=== PATIENT | female | born 1935 | race Caucasian/White ===

== ENCOUNTER 2016-09-17 19:21 | Emergency (ER) | payer MEDICARE, OTHER ==
[2016-09-17] MEDS ORDERED: ONDANSETRON INJ 4 MG/2 ML VIAL IV ONE (19:31)
[2016-09-17] MEDS ORDERED: ASPIRIN TABLET 325 MG TAB PO ONE (19:31)
[2016-09-17] MEDS ORDERED: SODIUM CHLORIDE 0.9% (FLUSH) 10 ML SYG IV PRN (19:31)
[2016-09-17] MEDS ORDERED: ONDANSETRON ODT 8 MG TAB SL PRN (19:34)
[2016-09-17 20:03] VITALS: TEMP 98.2
--- NOTE | 2016-09-17 20:16 | CT ---
EXAM DESCRIPTION: CT HEAD WITHOUT IV CONTRAST CLINICAL HISTORY: 81 y/o Fmemory loss COMPARISON: None. TECHNIQUE: Contiguous axial images were obtained through the brain without IV contrast. FINDINGS: The ventricles and sulci are prominent consistent with atrophic change. Microvascular ischemic changes. No acute hemorrhage. No mass lesions. 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 Marked atherosclerotic calcifications in the distal vertebral and carotid arteries. No fluid or significant mucosal thickening in the visualized paranasal sinuses. No depressed calvarial fractures. IMPRESSION: Atrophy and microvascular ischemic changes. 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 No acute intracranial abnormality is identified. If there is concern for acute ischemic change, MRI with diffusion-weighted images could be obtained to better evaluate. Electronically signed by: Abimael Cormier MD 09/17/2016 20:15
[2016-09-17] MEDS: NITROGLYCERIN 0.4 MG 25 EA TAB SL ONE ×2 (20:32→20:39)
[2016-09-17] MEDS ORDERED: NITROGLYCERIN 0.4 MG 25 EA TAB SL ONE (20:42)
--- NOTE | 2016-09-17 20:46 | RAD ---
EXAM DESCRIPTION: XR CHEST 1 VIEW CLINICAL HISTORY: 81 y/o Fcardiac problems. COMPARISON: 07/21/2014. FINDINGS: Mild cardiomegaly. Changes from previous sternotomy. Atherosclerotic calcifications in the thoracic aorta. No consolidating infiltrates or pleural effusions. No pneumothorax. Degenerative changes in the spine. Chronic changes in the left shoulder. IMPRESSION: No acute abnormality is identified. Electronically signed by: Abimael Cormier MD 09/17/2016 20:44
[2016-09-17] MEDS ORDERED: NITROGLYCERIN/D5W IV 250 ML IVS SCH (21:30)
[2016-09-17] MEDS ORDERED: METOPROLOL TARTRATE INJ 5 MG/5 ML VIAL IV ONE (22:11)
--- NOTE | 2016-09-17 22:41 | ED.PDOC ---
History of Present Illness - General Chief Complaint: Neuro Symptoms/Deficits Stated Complaint: alter mental status Time Seen by Provider: 09/17/16 19:43 Source: patient Exam Limitations: clinical condition - History of Present Illness Initial Comments: the patient is an 81-year-old female presenting to the emergency room due to a period of altered mental status. The patient was present with her family at her house when she went to check her blood sugar. When she didn't come back to the dining room table her son went and found her and she was wondering around her room confused. She had not checked her blood sugar which they did and it was 150. She did not remember what day it was or what month it was what holiday it was. She was moving all extremities as well as normal. She was speaking as well as normal but she was obviously confused. She was not having any chest pain or shortness of breath. Apparently on the ride up here she complained of some headache. By her arrival here she was not having a headache. she was mildly confused still upon her arrival here. She did get the year correct but could not recall the month. She knew she was at the [facility] emergency room. She did not know why her family was here. She cannot remember if she had any supper or what she had for lunch. f note, during the previous week she has had symptoms of a gastroenteritis with some mild nausea and a couple of episodes of vomiting. Oral intake has not quite been normal. She has had several episodes of her anginal chest pain over the last week which is not unusual. She apparently had a normal catheterization with Dr. begum in June. she was apparently told to continue taking her nitroglycerin as needed for the chest pain. There appears to be some noncompliance with her medications to control her hypertension. She was significantly hypertensive upon arrival here and has remained so even after resting. Systolic blood pressures have been around 200. She has no headache. She has no chest pain. She has no shortness of breath. There was no syncope. There was no fall. She does have a history of getting confused with any infection on board. She has not had a fever. She has not had a productive cough. She has not had any urinary symptoms. Timing/Duration: 1/2 hour Severity: moderate Improving Factors: nothing Worsening Factors: nothing Associated Symptoms: malaise Allergies/Adverse Reactions: Allergies NO KNOWN ALLERGY Allergy (Verified 07/11/14 15:11) Home Medications: Ambulatory Orders Alendronate Sodium [Fosamax] 70 mg PO TH 01/27/13 Atorvastatin Calcium [Lipitor] 10 mg PO BEDTIME 01/27/13 Calcium Ascorbate [Vitamin C] 500 mg PO BID 01/27/13 Cinnamon 500 mg PO BID 01/27/13 Cyanocobalamin [Vitamin B-12] 1,000 mcg PO BID 01/27/13 Fish Oil-Cholecalciferol [[place]-3 Fish Oil/Vitamin 6804-2368 mg-Unit] 1,000 mg PO BID 01/27/13 Furosemide [Lasix] 20 mg PO AM 01/27/13 Gabapentin 1,200 mg PO BEDTIME 01/27/13 Gabapentin [Neurontin] 600 mg PO DAILY 01/27/13 Imipramine HCl [Tofranil] 25 mg PO BEDTIME 01/27/13 Potassium Chloride [Micro-K] 10 meq PO DAILYBK 01/27/13 Ranolazine [Ranexa] 500 mg PO BID 07/11/14 Acetaminophen [Tylenol Arthritis Pain] 650 mg PO BEDTIME 07/12/14 Cpynxepnbk-Gsymerdal-Ljmxezfuf [Exforge Hct 5-160-12.5 mg] 0.5 tab PO DAILY Calcium Carbonate 600 mg PO BID 07/12/14 Cholecalciferol [Vitamin D] 400 unit PO BID 07/12/14 Denosumab [Prolia] 60 mg SC .Q6 MONTHS 07/12/14 HYDROcodone 5MG/APAP 325MG [[place] 5/325] 1 ea PO Q4H PRN 07/12/14 Isosorbide Mononitrate [Isosorbide Mononitrate ER] 60 mg PO DAILY 07/12/14 Metformin HCl 1,000 mg PO DAILYBK 07/12/14 Metformin HCl 500 mg PO BEDTIME 07/12/14 Metformin HCl 500 mg PO NOON 07/12/14 Warfarin Sodium [Coumadin] 4 mg PO DAILY 07/12/14 Digoxin [Lanoxin Tab] 0.125 mg PO DAILY@1200 #30 tab 07/15/14 Insulin Detemir [Levemir Pen] 30 u SUBCU BEDTIME #0 pen 07/15/14 Ipratropium/Albuterol [Duoneb] 3 ml NEB RTQID #100 vial 07/15/14 diltiaZEM HCL CD [Cardizem CD] 180 mg PO DAILY #30 cap 07/15/14 Review of Systems - Review of Systems Constitutional: States: malaise, weakness EENTM: States: no symptoms reported Respiratory: States: no symptoms reported Cardiology: States: no symptoms reported Gastrointestinal/Abdominal: States: nausea, vomiting Genitourinary: States: no symptoms reported Musculoskeletal: States: no symptoms reported Skin: States: no symptoms reported Endocrine: States: no symptoms reported All other Systems: No Change from Baseline Past Medical History (General) - Patient Medical History Hx Seizures: No Hx Stroke: No Hx Asthma: No Hx of COPD: No Hx Cardiac Disorders: Yes Hx Congestive Heart Failure: Yes Hx Pacemaker: No Hx Hypertension: Yes Hx Thyroid Disease: Yes Hx Diabetes: Yes Hx Gastroesophageal Reflux: Yes Hx Cancer: Yes - skin Hx MRSA: No - Vaccination History Hx Tetanus, Diphtheria Vaccination: No Hx Influenza Vaccination: Yes Hx Pneumococcal Vaccination: Yes Immunizations Up to Date: No - Social History Hx Tobacco Use: No Hx Alcohol Use: No Hx Substance Use: No Hx Substance Use Treatment: No Hx Depression: No Hx Physical Abuse: No Hx Emotional Abuse: No - Female History Patient is a Female of Child Bearing Age (10 -59 yrs old): No Patient : No Family Medical History - Family History Brother Living Status: Still Living Hx Family Cancer: Yes - prostate Physical Exam - Physical Exam General Appearance: Alert, Other - mildly drowsy and orientedx2 Eye Exam: bilateral normal Ears, Nose, Throat: hearing grossly normal, normal ENT inspection, normal pharynx Neck: non-tender, full range of motion, supple, normal inspection Respiratory: chest non-tender, lungs clear, normal breath sounds, no respiratory distress, no accessory muscle use Cardiovascular/Chest: normal peripheral pulses, no edema, irregularly irregular - regular rate Peripheral Pulses: radial,right: 2+, radial,left: 2+, dorsalis pedis,right: 2+, dorsalis pedis,left: 2+ Gastrointestinal/Abdominal: normal bowel sounds, non tender, soft Back Exam: normal inspection Extremity: normal range of motion, non-tender, normal inspection, no pedal edema , normal capillary refill Neurologic: alert, other - mildly confused but improving over the next hour Skin Exam: normal color Comments: Vital Signs - 24 hr 12/09/17/16 09/17/16 19:38 19:50 20:16 Temperature 98.2 F Pulse Rate [ 77 67 Left] Respiratory 20 16 Rate Blood Pressure Blood Pressure 190/71 155/53 [Left Arm] O2 Sat by Pulse 97 97 Oximetry 09/17/16 09/17/16 09/17/16 21:03 21:09 21:40 Temperature Pulse Rate [ 70 Left] Respiratory 20 16 Rate Blood Pressure 193/84 Blood Pressure 193/84 178/77 [Left Arm] O2 Sat by Pulse 99 100 Oximetry Progress - Progress Progress: 09/17/16 22:52 the patient is an 81-year-old female with transient altered mental status. Her mental status does appear to be improving to almost normal at this time. Source of this is not entirely certain. She has new EKG changes when compared with EKG from 2013 but she is not having any chest pain or shortness of breath. CK and CK-MB levels are normal initially and upon repeat, however troponins are 10% above the upper limits of normal and holding steady. it is possible she may have had a small cardiac event 5-7 days ago. she has received aspirin and nitroglycerin. She is already anticoagulated with Coumadin. I am not adding Plavix or Lovenox to this patient due to the possibility of a GI bleed. She does have uncontrolled hypertension and has been placed on a nitroglycerin drip as well as received a dose of IV labetalol bringing her systolic blood pressure down to around 150. She does have new anemia with a hemoglobin and hematocrit of 8 and 26. This may be significant enough to cause her symptoms. She additionally does have a decrease in her MCV compared to previous blood work indicating what is most likely a progression of iron deficiency possibly pointing to longer-term GI bleed. She does not give any history of any melanotic or bloody stools. She does use Coumadin and is chronically anticoagulated. She has never had an endoscopy. Additionally she does show some decompensation in her renal function. Baseline creatinine for this patient is approximately 1.5 and it is now 2. The BUN elevation may possibly be due to a GI bleed not yet detected. Deterioration in renal function may also be due to uncontrolled hypertension. she does have a mild leukocytosis which may be consistent with her symptoms of gastroenteritis over the last week. the patient is being transferred for evaluation by cardiology given the EKG changes and possibly GI if clinically indicated tomorrow. She may also warrant transfusion of a unit of packed red blood cells. - Results/Orders Results/Orders: 09/17/16 19:31 Sodium Chloride 0.9% (Flush) [Saline Flush Syringe] 10 ml IV PRN PRN 09/17/16 19:32 IV Care:Saline Lock per Protoc QSHIFT Telemetry .ONCE EKG Stat Pulse Ox Stat 09/17/16 19:34 Ondansetron Odt [Zofran ODT] 4 mg SL Q4H PRN 09/17/16 21:30 Nitroglycerin/D5w IV 250 ml IVS PRN Laboratory Results - last 24 hr 09/17/16 09/17/16 09/17/16 19:40 20:50 21:45 WBC 12.9 H RBC 3.45 L Hgb 8.1 L Hct 26.3 L MCV 76.3 L MCH 23.4 L MCHC 30.9 L RDW 19.2 H Plt Count 326 MPV 8.3 Absolute Neuts (auto) 9.60 H Absolute Lymphs (auto) 1.70 Absolute Monos (auto) 1.10 H Absolute Eos (auto) 0.30 Absolute Basos (auto) 0.20 H Neutrophils % 74.2 Lymphocytes % 13.5 L Monocytes % 8.4 Eosinophils % 2.5 Basophils % 1.4 PT 31.7 H* INR 2.920 PTT (SP) 42.8 H Sodium 134 L Potassium 5.3 H Chloride 101 Carbon Dioxide 23 Anion Gap 15.3 BUN 62 H Creatinine 2.05 H BUN/Creatinine Ratio 30.2 H Random Glucose 148 H Serum Osmolality 288.6 Calcium 8.7 Magnesium 1.9 Creatine Kinase 103 94 CK-MB (CK-2) 4.3 4.1 CK-MB (CK-2) % Not Reportable Not Reportable Troponin I 0.67 H* 0.64 H* B-Natriuretic Peptide 393.0 H* Urine Color Yellow Urine Appearance Clear Urine pH 5.5 Ur Specific [place] 1.015 Urine Protein Negative Urine Glucose (UA) Negative Urine Ketones Negative Urine Blood Negative Urine Nitrite Negative Urine Bilirubin Negative Urine Urobilinogen 0.2 Ur Leukocyte Esterase Trace H Urine RBC 1-3 Urine WBC 5-10 H Ur Epithelial Cells 3-5 Urine Bacteria Rare Urine Mucus Trace chest x-ray shows mild cardiomegaly but otherwise appears benign. Several EKGs obtained. All EKGs show [address] segment depression in leads V4 and V5 with lesser ST segment depression in lead V3 and V6. This is new in comparison to EKG obtained from 2003. One EKG shows background atrial flutter the other appears to be background atrial fibrillation. There are possible Q waves in lead 3 but not aVF. There is mild T-wave inversion in 2 and aVL and 1. Rate is well controlled in the 60s. I do not see any ST segment elevation. [place] is grossly normal. - EKG/XRAY/CT CT Ordered: Yes Departure - Departure Clinical Impression: Iron deficiency anemia due to chronic blood loss, Hypertensive urgency Altered mental status Qualifiers: Altered mental status type: transient alteration of awareness Qualifier Code: ( R40.4) Transient alteration of awareness Acute renal failure Qualifiers: Acute renal failure type: unspecified Qualifier Code: (N17.9) Acute kidney failure, unspecified Disposition: Transfer to Hospital Referrals: Odell Paez MD [Primary Care Provider] - 1-2 Weeks Home Medications: Ambulatory Orders Alendronate Sodium [Fosamax] 70 mg PO TH 01/27/13 Atorvastatin Calcium [Lipitor] 10 mg PO BEDTIME 01/27/13 Calcium Ascorbate [Vitamin C] 500 mg PO BID 01/27/13 Cinnamon 500 mg PO BID 01/27/13 Cyanocobalamin [Vitamin B-12] 1,000 mcg PO BID 01/27/13 Fish Oil-Cholecalciferol [[place]-3 Fish Oil/Vitamin 9788-8850 mg-Unit] 1,000 mg PO BID 01/27/13 Furosemide [Lasix] 20 mg PO AM 01/27/13 Gabapentin 1,200 mg PO BEDTIME 01/27/13 Gabapentin [Neurontin] 600 mg PO DAILY 01/27/13 Imipramine HCl [Tofranil] 25 mg PO BEDTIME 01/27/13 Potassium Chloride [Micro-K] 10 meq PO DAILYBK 01/27/13 Ranolazine [Ranexa] 500 mg PO BID 07/11/14 Acetaminophen [Tylenol Arthritis Pain] 650 mg PO BEDTIME 07/12/14 Euqbavpmtx-Buxqqtnzp-Gbadctlxz [Exforge Hct 5-160-12.5 mg] 0.5 tab PO DAILY Calcium Carbonate 600 mg PO BID 07/12/14 Cholecalciferol [Vitamin D] 400 unit PO BID 07/12/14 Denosumab [Prolia] 60 mg SC .Q6 MONTHS 07/12/14 HYDROcodone 5MG/APAP 325MG [[place] 5/325] 1 ea PO Q4H PRN 07/12/14 Isosorbide Mononitrate [Isosorbide Mononitrate ER] 60 mg PO DAILY 07/12/14 Metformin HCl 1,000 mg PO DAILYBK 07/12/14 Metformin HCl 500 mg PO BEDTIME 07/12/14 Metformin HCl 500 mg PO NOON 07/12/14 Warfarin Sodium [Coumadin] 4 mg PO DAILY 07/12/14 Digoxin [Lanoxin Tab] 0.125 mg PO DAILY@1200 #30 tab 07/15/14 Insulin Detemir [Levemir Pen] 30 u SUBCU BEDTIME #0 pen 07/15/14 Ipratropium/Albuterol [Duoneb] 3 ml NEB RTQID #100 vial 07/15/14 diltiaZEM HCL CD [Cardizem CD] 180 mg PO DAILY #30 cap 07/15/14 Transfer to Outside Facility - Transfer Information Accepting Provider:: dr vogel Accepting Facility: [facility] Reason for Transfer: required specialist not available
[2016-09-18 00:28] VITALS: BP 152/66; O2SAT 99
== END 2016-09-18 00:35 | disposition short-term general hospital (02) ==
LOC: ER 19:21
DX: D50.0 Iron deficiency anemia secondary to blood loss (chronic) (principal); I16.0 Hypertensive urgency; I11.0 Hypertensive heart disease with heart failure; I50.9 Heart failure, unspecified; E11.9 Type 2 diabetes mellitus without complications; E07.9 Disorder of thyroid, unspecified; N17.9 Acute kidney failure, unspecified; R40.4 Transient alteration of awareness; Z79.899 Other long term (current) drug therapy; Z79.4 Long term (current) use of insulin; Z85.828 Personal history of other malignant neoplasm of skin; Z80.42 Family history of malignant neoplasm of prostate
CPT/HCPCS: 36415; 70450; 71010; 80048; 81001; 82550; 82553; 83880; 84484; 85025; 85610; 85730; 93005; 94760; J2405